=== PATIENT | male | born 1980 | race Caucasian/White ===

== ENCOUNTER 2017-02-08 14:06 | Emergency (ER) | payer MEDICARE, MEDICAID ==
[~2017-02-08] VITALS: Ht 165.1 cm; Wt 120.7 kg
[2017-02-08 15:07] LABS: BASO # 0.1 10*3/uL (0.0-0.1); BASO % 0.5 % (0.0-1.0); EOS # 0.4 10*3/uL (0.0-0.4); EOS % 4.7 % (1.0-4.0); HEMATOCRIT 41.7 % (42.0-52.0); HEMOGLOBIN 13.2 g/dl (14.0-18.0); LYMPH % 32.4 % (27.0-41.0); MEAN CELL VOLUME 85.1 fl (80.0-94.0); MEAN CORPUSCULAR HGB 26.9 pg (27.0-31.0); MEAN CORPUSCULAR HGB CONC 31.7 g/dl (33.0-37.0); MEAN PLATELET VOLUME 11.3 fl (9.6-12.3); MONO # 0.5 10*3/uL (0.1-1.0); MONO % 5.3 % (3.0-9.0); NEUT # 5.3 10*3/uL (2.3-7.9); NEUT % 56.7 % (47.0-73.0); PLATELET COUNT AUTOMATED 279 10*3/uL (130-400); RED CELL DISTRI WIDTH 15.1 % (0-14.5); WHITE BLOOD COUNT 9.4 10*3/uL (4.8-10.8)
[2017-02-08 15:24] LABS: ALBUMIN 3.4 gm/dl (3.1-4.5); BUN 10 mg/dl (7-24); CHLORIDE 107 mmol/L (98-107); CREATININE 0.69 mg/dL (0.70-1.30); LIPASE 165 U/L (73-393); POTASSIUM 3.8 mmol/L (3.5-5.1); SGOT/AST 33 IU/L (3-35); SGPT/ALT 53 U/L (12-78); SODIUM 142 mmol/L (136-145); TOTAL PROTEIN 8.5 gm/dL (6.4-8.2)
[2017-02-08 15:26] LABS: BILIRUBIN NEGATIVE (NEGATIVE); BLOOD NEGATIVE (NEGATIVE); CLARITY CLEAR (CLEAR); COLOR YELLOW (YELLOW); GLUCOSE NEGATIVE (NEGATIVE); KETONE NEGATIVE (NEGATIVE); LEUKO ESTERASE NEGATIVE (NEGATIVE); NITRITE NEGATIVE (NEGATIVE); SPECIFIC GRAVITY 1.015 (1.005-1.030); UROBILINOGEN 0.2 E.U./dl (0.2-1.0)
[2017-02-08 15:27] LABS: ALKALINE PHOSPHATASE 139 U/L (45-117)
[2017-02-08 15:29] LABS: TROPONIN I < 0.015 ng/ml (<0.045)
[2017-02-08 15:48] LABS: BACTERIA TRACE
[2017-02-08 15:49] LABS: WBC 0-2 wbc/hpf (0-5)
[2017-02-08] MEDS ORDERED: LIDEX 0.05% CRE15 GM T (16:18)
== END 2017-02-08 16:22 | disposition home or self-care (01) ==
LOC: ED 14:06
PROVIDERS: Physician Assistant
DX: R21 Rash and other nonspecific skin eruption (principal); F43.9 Reaction to severe stress, unspecified

== ENCOUNTER 2017-09-01 14:19 | Inpatient (IN) | payer OTHER, MEDICAID ==
[~2017-09-01] VITALS: Ht 165.1 cm; Wt 123.6 kg
--- NOTE | ~2017-09-01 | PR ---
[place], [place] PROGRESS NOTE NAME: FELIZ MORALES [facility] #: [id number] UNIT #: [id number] ROOM: 519 DOCTOR: ALEJANDRA SANTACRUZ MD BIRTHDATE: [birth year] DOS: 09/03/2017 The patient was seen today in the Cardiology Department just prior to his stress test. He is a 37-year-old man with a history of Klinefelter syndrome, who presented with anterior chest pain and syncope. Thus far, he has ruled out for an acute myocardial infarction. On exam today, his pulse is 83 and regular, blood pressure 139/75. He is afebrile. His neck is Supple. He has no jugular distention. Chest is clear. Heart has a regular rhythm with an S4 gallop. Abdomen is benign. Extremities showed no edema. The patient did have an echocardiogram on 09/02/2017 that showed normal left ventricular size, wall thickness, regional wall motion and systolic function. No significant abnormality of valve function was seen. Hemoglobin is 11.4, hematocrit 38.4. There are 8600 white cells and 249,000 platelets present. Sodium 142, potassium 3.9, chloride 109, CO2 25, BUN 10, creatinine 0.6. IMPRESSION: 1. Atypical chest pain, most likely musculoskeletal in origin. 2. Syncopal episode, which may be vasovagal. 3. Clinical findings consistent with metabolic syndrome. PLAN: We will do an exercise myocardial perfusion study today. Further recommendations will depend upon the results of his stress test. ALEJANDRA SANTACRUZ MD CM:PNTRANS [id number] ALEJANDRA SANTACRUZ MD 09/04/17 0631 interface
--- NOTE | ~2017-09-01 | CON ---
[place], [place] REPORT OF CONSULTATION [id number] UN[facility] #: [id number] ROOM: 519 DOCTOR: ALEJANDRA SANTACRUZ MD BIRTHDATE: [birth year] DOS: 09/02/2017 CARDIOLOGY CONSULTATION REASON FOR CONSULTATION: Chest pain and syncope. HISTORY OF PRESENT ILLNESS: The patient is a 37-year-old man with a history of obesity and Klinefelter's syndrome. He is on social security disability and has a history of compulsive gambling. He states that about 6 months ago while walking at the [facility], a rehab facility, he developed lightheadedness and near syncope. He had a brief chest pain at that time as well. Symptoms resolved and he was not evaluated further. Yesterday while walking again at the [facility], he felt like he was getting overheated and weak. He also developed a left anterior chest pain. He sat down and then lost consciousness, falling to the pavement. He apparently did not injure himself. He was brought to the Emergency Room where his electrocardiogram showed sinus tachycardia with a leftward axis and poor precordial R-wave progression. He had nonspecific T-wave flattening. Serial troponin levels were all normal. In the hospital, his rhythm has been sinus or mild sinus tachycardia. A CT of the head showed no fracture or acute abnormalities. A CT angiogram of the chest showed no pneumothorax, pleural effusion or evidence for pulmonary embolism. Chest x-ray showed clear lungs. We were asked to assist in his evaluation as well. Currently, the patient states that he is having 9/10 left anterior chest pain, but he looks very comfortable and is not diaphoretic or dyspneic. His EKG shows no acute changes this morning. PAST HISTORY: Includes: 1. Seizure disorder as a child. 2. Klinefelter's syndrome. 3. Status post cholecystectomy. 4. Remote history of cigarette abuse. The patient has not smoked in over 10 years. MEDICATIONS: Prior to admission included a multivitamin once a day and paliperidone 3 mg at bedtime. ALLERGIES: The patient has no known drug allergies. FAMILY HISTORY: His paternal grandfather had a heart attack in his 70s. His sister has diabetes. REVIEW OF SYSTEMS: The patient denies diplopia or loss of vision. He did have a syncopal episode prior to his admission. He denies fevers, chills or sweats. He did have sweating and palpitations at the time of the syncopal episode; however, he denies any recent weight change. He denies nausea or vomiting. He denies orthopnea or PND. He denies cough, hemoptysis or hematemesis. He denies change in bowel or bladder habits. He denies blood in his stools or urine. He denies any peripheral edema. He denies skin rashes. He denies heat or cold intolerance. The remainder of the review of systems is negative except as noted [place], [place] REPORT OF CONSULTATION NAME: FELIZ MORALES UNIT #: [id number] ROOM: [facility] DOCTOR: ALEJANDRA SANTACRUZ MD BIRTHDATE: [birth year] above. SOCIAL HISTORY: The patient rarely drinks alcohol. He was a smoker in the past. He is single. PHYSICAL EXAMINATION: GENERAL: The patient is an overweight white male with truncal obesity. He is awake, alert and oriented. VITAL SIGNS: Pulse is 76 and regular, blood pressure is 115/60, he is afebrile. He weighs 123.6 kg and has a body mass index of 45.4. HEENT: Normocephalic, atraumatic. Extraocular muscles are intact. Sclerae are clear. Pupils equal, round and react to light. The oral mucosa is moist. Tongue is midline. NECK: Supple. He has no jugular distention. Carotids are full without bruits. He has no neck or supraclavicular masses. LUNGS: Respirations are unlabored. His chest is clear to auscultation and percussion, although he does have mild expiratory prolongation and a few scattered wheezes. He has no presacral edema or chest wall tenderness. CARDIOVASCULAR: His heart has a regular rhythm. He has a fourth heart sound, but no third heart sound or murmur. The PMI is not displaced. There is no precordial heave, lift or thrill. Palpation of his left anterior upper chest does reproduce his symptoms of chest pain. ABDOMEN: Obese, but otherwise benign, without masses, organomegaly, bruits or tenderness. EXTREMITIES: Showed no edema. Pedal pulses are palpable bilaterally. DIAGNOSTIC DATA: I reviewed his electrocardiograms and they do show sinus rhythm and sinus tachycardia with poor precordial R-wave progression, but no acute changes. LABORATORY DATA: Serial troponins were normal. Drug screen was normal. Sodium is 142, potassium 3.9, chloride 109, CO2 of 25, BUN 10, creatinine 0.6, glucose 135. Hemoglobin A1c 6.9, total cholesterol 126, LDL 79, HDL 22, triglycerides 125. IMPRESSION: 1. Atypical chest pain, most likely musculoskeletal in origin. 2. Syncopal episode, which may be vasovagal. 3. Truncal obesity with clinical findings consistent with the metabolic syndrome. PLAN: We will continue to observe the patient today for arrhythmias to explain his syncopal episode. We will also be getting an echocardiogram to look for evidence of structural heart disease. If nothing shows up there, we will plan on an exercise myocardial perfusion study within the next 24 hours. In the meantime, he should be on an aspirin and a statin because of his risk factors and his metabolic syndrome. Certainly, he should remain active and lose weight. We thank the hospitalist physicians for asking our advice regarding his care. [place], [place] REPORT OF CONSULTATION NAME: FELIZ MORALES UNIT #: [id number] ROOM: 519 DOCTOR: ALEJANDRA SANTACRUZ MD BIRTHDATE: [birth year] ALEJANDRA SANTACRUZ MD CM:CONSTR:REPORT OF CONSULTATION [id number] 09/02/17 2019 interface
[~2017-09-01 14:19] MED LIST: LIDEX 0.05% CRE15 GM T
[2017-09-01 14:23] VITALS: BP 139/82
[2017-09-01] MEDS ORDERED: DAILY VITE1 EACH PO (14:26)
[2017-09-01] MEDS ORDERED: PALIPERIDONE ER3 MG PO (14:26)
[2017-09-01 14:42] LABS: BASO # 0.1 10*3/uL (0.0-0.1); BASO % 0.5 % (0.0-1.0); EOS # 0.6 10*3/uL (0.0-0.4); EOS % 5.7 % (1.0-4.0); HEMATOCRIT 41.8 % (42.0-52.0); HEMOGLOBIN 12.9 g/dl (14.0-18.0); LYMPH # 3.7 10*3/uL (1.3-4.4); LYMPH % 33.1 % (27.0-41.0); MEAN CELL VOLUME 85.7 fl (80.0-94.0); MEAN CORPUSCULAR HGB 26.4 pg (27.0-31.0); MEAN CORPUSCULAR HGB CONC 30.9 g/dl (33.0-37.0); MEAN PLATELET VOLUME 11.4 fl (9.6-12.3); MONO # 0.7 10*3/uL (0.1-1.0); MONO % 6.5 % (3.0-9.0); NEUT # 6.1 10*3/uL (2.3-7.9); NEUT % 53.8 % (47.0-73.0); PLATELET COUNT AUTOMATED 286 10*3/uL (130-400); RED BLOOD COUNT 4.88 10*6/uL (4.50-5.90); WHITE BLOOD COUNT 11.3 10*3/uL (4.8-10.8)
[2017-09-01 14:59] LABS: ALBUMIN 3.5 gm/dl (3.1-4.5); ALKALINE PHOSPHATASE 137 U/L (45-117); BUN 10 mg/dl (7-24); CHLORIDE 110 mmol/L (98-107); CREATININE 0.75 mg/dL (0.70-1.30); POTASSIUM 3.9 mmol/L (3.5-5.1); SGOT/AST 31 IU/L (3-35); SGPT/ALT 47 U/L (12-78); SODIUM 143 mmol/L (136-145); TOTAL PROTEIN 8.6 gm/dL (6.4-8.2)
[2017-09-01 15:04] LABS: TROPONIN I < 0.015 ng/ml (<0.045)
[2017-09-01 15:44] LABS: ACT PARTIAL THROMBO TIME 24.9 SECONDS (20.8-31.5); INTERNATIONAL NORM RATIO 0.9 (2.0-3.5)
[2017-09-01 15:49] LABS: BILIRUBIN NEGATIVE (NEGATIVE); BLOOD NEGATIVE (NEGATIVE); CLARITY CLEAR (CLEAR); COLOR YELLOW (YELLOW); GLUCOSE NEGATIVE (NEGATIVE); KETONE NEGATIVE (NEGATIVE); LEUKO ESTERASE NEGATIVE (NEGATIVE); NITRITE NEGATIVE (NEGATIVE); SPECIFIC GRAVITY 1.025 (1.005-1.030); UROBILINOGEN 0.2 E.U./dl (0.2-1.0)
[2017-09-01 15:56] LABS: BACTERIA TRACE; RBC 0-2 rbc/hpf (0-2); WBC 0-2 wbc/hpf (0-5)
[2017-09-01 16:00] LABS: URINE AMPHETAMINES < 1000 (1000ng/ml); URINE BARBITURATES < 200 (200ng/ml); URINE BENZODIAZEPINES < 200 (200ng/ml); URINE CANNABINOIDS (THC) < 50 (50ng/ml); URINE COCAINE < 300 (300ng/ml); URINE METHADONE < 300 (300ng/ml); URINE OPIATES < 300 (300ng/ml)
[2017-09-01 16:09] LABS: URINE PHENCYCLIDINE < 25 (25ng/ml)
[2017-09-01 16:25] VITALS: BP 126/66
[2017-09-01 17:44] VITALS: BP 139/76
[2017-09-01 19:30] VITALS: BP 132/72
[2017-09-01 20:00] VITALS: BP 125/71
[2017-09-02] VITALS: BP 128/68
[2017-09-02 07:15] LABS: BASO # 0.1 10*3/uL (0.0-0.1); BASO % 0.7 % (0.0-1.0); EOS # 0.6 10*3/uL (0.0-0.4); EOS % 6.8 % (1.0-4.0); HEMATOCRIT 38.4 % (42.0-52.0); HEMOGLOBIN 11.4 g/dl (14.0-18.0); LYMPH # 3.3 10*3/uL (1.3-4.4); LYMPH % 38.9 % (27.0-41.0); MEAN CELL VOLUME 88.1 fl (80.0-94.0); MEAN CORPUSCULAR HGB 26.1 pg (27.0-31.0); MEAN CORPUSCULAR HGB CONC 29.7 g/dl (33.0-37.0); MEAN PLATELET VOLUME 11.8 fl (9.6-12.3); MONO # 0.5 10*3/uL (0.1-1.0); MONO % 5.8 % (3.0-9.0); NEUT # 4.1 10*3/uL (2.3-7.9); NEUT % 47.5 % (47.0-73.0); PLATELET COUNT AUTOMATED 249 10*3/uL (130-400); RED BLOOD COUNT 4.36 10*6/uL (4.50-5.90); WHITE BLOOD COUNT 8.6 10*3/uL (4.8-10.8)
[2017-09-02 07:30] LABS: BUN 10 mg/dl (7-24); CHLORIDE 109 mmol/L (98-107); CHOLESTEROL 126 mg/dL (<200); PHOSPHOROUS 3.2 mg/dL (2.5-4.9); POTASSIUM 3.9 mmol/L (3.5-5.1); SODIUM 142 mmol/L (136-145); TRIGLYCERIDES 125 mg/dl (<150); VLDL CHOLESTEROL 25 mg/dL (6-40)
[2017-09-02 07:40] LABS: FREE T4 0.91 ng/dl (0.76-1.46); HDL CHOLESTEROL 22 mg/dl (40-60); LDL CHOLESTEROL 79 mg/dL (9-159)
[2017-09-02 08:00] VITALS: BP 115/60
[2017-09-02 10:01] LABS: VITAMIN D, 25-HYDROXY 15.8 ng/mL (30-100)
[2017-09-02 12:00] VITALS: BP 113/61
[2017-09-02 16:00] VITALS: BP 113/61
[2017-09-02 20:00] VITALS: BP 120/85
[2017-09-03] VITALS: BP 127/82
[2017-09-03 08:00] VITALS: BP 139/75
[2017-09-03] MEDS ORDERED: VITAMIN D-32000 UNIT PO (15:14)
[2017-09-03] MEDS ORDERED: ATORVASTATIN CA80 M1 PO (15:14)
[2017-09-03] MEDS ORDERED: ASPIRIN ADULT L81 M2 PO (15:14)
[2017-09-03 16:00] VITALS: BP 139/84
== END 2017-09-03 18:25 | disposition home or self-care (01) | DRG 312 ==
LOC: ED 14:19 → EDHOLD 18:28 → 5E 18:28 → EDHOLD 18:49 → 5E 19:14
PROVIDERS: Physician Assistant; Student in an Organized Health Care Education/Training Program
PROC: 4A02XM4 Measurement of Cardiac Total Activity, External Approach (ICD-10-PCS; principal; 2017-09-03)
DX: I95.1 Orthostatic hypotension (principal); E87.8 Other disorders of electrolyte and fluid balance, not elsewhere classified; E66.01 Morbid (severe) obesity due to excess calories; Z68.42 Body mass index [BMI] 45.0-49.9, adult; R07.9 Chest pain, unspecified; Q98.4 Klinefelter syndrome, unspecified; D64.9 Anemia, unspecified; R03.0 Elevated blood-pressure reading, without diagnosis of hypertension; R00.0 Tachycardia, unspecified; R73.9 Hyperglycemia, unspecified; R74.8 Abnormal levels of other serum enzymes; E86.0 Dehydration; G40.909 Epilepsy, unspecified, not intractable, without status epilepticus; W18.39XA Other fall on same level, initial encounter; Z87.891 Personal history of nicotine dependence; Z79.899 Other long term (current) drug therapy; Z87.898 Personal history of other specified conditions; Z90.49 Acquired absence of other specified parts of digestive tract; Z82.49 Family history of ischemic heart disease and other diseases of the circulatory system; Z83.3 Family history of diabetes mellitus; Y93.89 Activity, other specified; Y92.89 Other specified places as the place of occurrence of the external cause; Y99.8 Other external cause status

== ENCOUNTER 2019-01-11 15:40 | Inpatient (IN) | payer OTHER, MEDICAID ==
[~2019-01-11] VITALS: Ht 177.8 cm; Wt 124.7 kg
--- NOTE | ~2019-01-11 | EKG ---
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
--- NOTE | ~2019-01-11 | EKG ---
[place], [place] ELECTROCARDIOGRAM REPORT NAME: FELIZ MORALES UNIT #: [id number] ROOM: 412 DOCTOR: JEAN DRAFT REPORT BIRTHDATE: [birth year] 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
--- NOTE | ~2019-01-11 | EKG ---
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
[2019-01-11 15:40] VITALS: BP 131/70
[~2019-01-11 15:40] MED LIST changes: +ASPIRIN ADULT L81 M2 PO; +ATORVASTATIN CA80 M1 PO; +DAILY VITE1 EACH PO; +PALIPERIDONE ER3 MG PO; +VITAMIN D-32000 UNIT PO
[2019-01-11 16:03] LABS: BASO # 0.1 10*3/uL (0.0-0.1); BASO % 0.6 % (0.0-1.0); EOS # 0.3 10*3/uL (0.0-0.4); EOS % 2.9 % (1.0-4.0); HEMATOCRIT 39.2 % (42.0-52.0); HEMOGLOBIN 12.1 g/dl (14.0-18.0); LYMPH # 3.6 10*3/uL (1.3-4.4); LYMPH % 33.7 % (27.0-41.0); MEAN CELL VOLUME 88.5 fl (80.0-94.0); MEAN CORPUSCULAR HGB 27.3 pg (27.0-31.0); MEAN CORPUSCULAR HGB CONC 30.9 g/dl (33.0-37.0); MEAN PLATELET VOLUME 11.2 fl (9.6-12.3); MONO # 0.8 10*3/uL (0.1-1.0); MONO % 7.1 % (3.0-9.0); NEUT # 5.9 10*3/uL (2.3-7.9); NEUT % 55.4 % (47.0-73.0); PLATELET COUNT AUTOMATED 275 10*3/uL (130-400); RED BLOOD COUNT 4.43 10*6/uL (4.50-5.90); RED CELL DISTRI WIDTH 15.9 % (0-14.5); WHITE BLOOD COUNT 10.7 10*3/uL (4.8-10.8)
[2019-01-11 16:14] LABS: ACT PARTIAL THROMBO TIME 25.4 SECONDS (20.0-32.1); INTERNATIONAL NORM RATIO 0.9 (2.0-3.5)
[2019-01-11 16:34] LABS: ALBUMIN 3.1 gm/dl (3.1-4.5); ALKALINE PHOSPHATASE 125 U/L (45-117); BUN 10 mg/dl (7-24); CHLORIDE 110 mmol/L (98-107); CREATININE 0.77 mg/dL (0.70-1.30); POTASSIUM 3.8 mmol/L (3.5-5.1); SGOT/AST 30 IU/L (3-35); SGPT/ALT 38 U/L (12-78); SODIUM 143 mmol/L (136-145); TOTAL PROTEIN 8.2 gm/dL (6.4-8.2)
[2019-01-11 16:49] LABS: TROPONIN I < 0.015 ng/ml (<0.045)
[2019-01-11 17:00] VITALS: BP 139/87
[2019-01-11 18:26] VITALS: BP 141/76
--- NOTE | 2019-01-11 19:19 | NUR ---
REPORT RECEIVED FROM YOANNA BETHEA RN. PATIENT IS RESTING COMFORTABLY IN BED WITHOUT ANY S/S OF DISTRESS. VITALS ARE STABLE. AWAITING ADMISSION BED.
[2019-01-11 19:20] VITALS: BP 136/74
[2019-01-11 20:00] VITALS: BP 147/60
[2019-01-11] MEDS ORDERED: ZOLOFT50 MG PO (20:07)
[2019-01-11] MEDS ORDERED: DEPAKOTE ER250 MG PO (20:08)
--- NOTE | 2019-01-11 20:28 | NUR ---
HOME MEDICATIONS VARIFIED WITH PATIENT, PT HAD MEDICATION LABELS WITH HIM
--- NOTE | 2019-01-11 20:35 | NUR ---
ORTHOSTATIC BLOOD PRESSURES COMPLETE, ORTHO BP NEGATIVE HOWEVER PATIENT STATES THAT HE FEELS "MORE DIZZY" AND "MORE CHEST PAIN" WHEN STANDING. PT HAD DIFFICULT TIME STANDING FOR ORTHOS DUE TO FEELING DIZZY. DR. DAVIS WAS NOTIFIED
[2019-01-12] VITALS: BP 121/66
--- NOTE | 2019-01-12 04:00 | NUR ---
PATIENT SLEEPING, NO SIGNS OF DISTRESS. RESPIRATIONS EASY, NON LABORED. BED IN LOWEST POSITION, CALL LIGHT WITHIN REACH.WILL CONTINUE TO MONITOR.
[2019-01-12 05:37] LABS: BASO % 0.5 % (0.0-1.0); EOS # 0.4 10*3/uL (0.0-0.4); EOS % 4.7 % (1.0-4.0); HEMATOCRIT 39.7 % (42.0-52.0); HEMOGLOBIN 11.9 g/dl (14.0-18.0); LYMPH # 4.1 10*3/uL (1.3-4.4); LYMPH % 48.2 % (27.0-41.0); MEAN CELL VOLUME 89.6 fl (80.0-94.0); MEAN CORPUSCULAR HGB 26.9 pg (27.0-31.0); MONO # 0.5 10*3/uL (0.1-1.0); MONO % 6.4 % (3.0-9.0); NEUT # 3.4 10*3/uL (2.3-7.9); NEUT % 39.7 % (47.0-73.0); PLATELET COUNT AUTOMATED 247 10*3/uL (130-400); RED BLOOD COUNT 4.43 10*6/uL (4.50-5.90); RED CELL DISTRI WIDTH 15.9 % (0-14.5); WHITE BLOOD COUNT 8.5 10*3/uL (4.8-10.8)
[2019-01-12 06:06] LABS: BUN 9 mg/dl (7-24); CHLORIDE 108 mmol/L (98-107); CHOLESTEROL 152 mg/dL (<200); CREATININE 0.63 mg/dL (0.70-1.30); HDL CHOLESTEROL 24 mg/dl (40-60); LDL CHOLESTEROL 93 mg/dL (9-159); POTASSIUM 3.9 mmol/L (3.5-5.1); SODIUM 144 mmol/L (136-145); TRIGLYCERIDES 174 mg/dl (<150); VLDL CHOLESTEROL 35 mg/dL (6-40)
[2019-01-12 08:00] VITALS: BP 135/77
--- NOTE | 2019-01-12 09:00 | NUR ---
[place] in to talk to patient. Patient states lives at home with parents. There are few steps in the home. Physician: michael escaalnte [facility]acy[facility] Home health services: none Patient's level of ADLs: INDEPENDENT Patient has working utilities: all working DME: none Follow-up physician's appointment after d/c: will be made by hospitalist nurse aldo upon discharge Does patient want to access PORTAL?: no Discharge plan discussed with patient, he states he lives at home with his parents, he is independent in adls and ambulation, drives, he states he will return home when medically stable and denies any home needs. CHASE BAH
[2019-01-12 12:00] VITALS: BP 134/67
--- NOTE | 2019-01-12 15:31 | NUR ---
PT REQUESTED AND WAS MEDICATED WITH TYLENOL FOR C/O HEADACHE. CALL LIGHT IN REACH. WILL MONITOR
[2019-01-12 16:00] VITALS: BP 130/70
--- NOTE | 2019-01-12 18:18 | NUR ---
Discharge instructions reviewed with patient/family. Patient receptive and verbalizes understanding. Follow-up care arranged. Written instructions given to patient/family. EVERARDO MERCEDES
== END 2019-01-12 18:18 | disposition home or self-care (01) | DRG 312 ==
LOC: ED 15:40 → 4E 18:36 → EDHOLD 18:36 → 4E 19:35
PROVIDERS: Emergency Medicine; Student in an Organized Health Care Education/Training Program; ADMIT Internal Medicine
DX: I95.1 Orthostatic hypotension (principal); E44.0 Moderate protein-calorie malnutrition; E87.8 Other disorders of electrolyte and fluid balance, not elsewhere classified; R07.89 Other chest pain; D64.9 Anemia, unspecified; E78.5 Hyperlipidemia, unspecified; E11.65 Type 2 diabetes mellitus with hyperglycemia; E55.9 Vitamin D deficiency, unspecified; F41.9 Anxiety disorder, unspecified; G40.909 Epilepsy, unspecified, not intractable, without status epilepticus; F32.9 Major depressive disorder, single episode, unspecified; R74.8 Abnormal levels of other serum enzymes; E66.9 Obesity, unspecified; S00.93XA Contusion of unspecified part of head, initial encounter; S20.219A Contusion of unspecified front wall of thorax, initial encounter; W18.30XA Fall on same level, unspecified, initial encounter; Y93.89 Activity, other specified; Y92.811 Bus as the place of occurrence of the external cause; Y99.8 Other external cause status; Q98.4 Klinefelter syndrome, unspecified; Z90.49 Acquired absence of other specified parts of digestive tract; Z87.891 Personal history of nicotine dependence; Z84.89 Family history of other specified conditions; Z79.899 Other long term (current) drug therapy

== ENCOUNTER 2022-08-14 21:53 | Emergency (ER) | payer MEDICAID ==
[~2022-08-14] VITALS: Ht 170.1 cm; Wt 122.5 kg
[~2022-08-14 21:53] MED LIST changes: +DEPAKOTE ER250 MG PO; +ZOLOFT50 MG PO
[2022-08-14] MEDS ORDERED: KETOROLAC10 MG PO (22:47)
== END 2022-08-14 22:52 | disposition home or self-care (01) ==
LOC: ED 21:53
DX: M25.551 Pain in right hip (principal); Z79.899 Other long term (current) drug therapy; Z90.49 Acquired absence of other specified parts of digestive tract; Z87.891 Personal history of nicotine dependence; W18.39XA Other fall on same level, initial encounter; Y93.89 Activity, other specified; Y92.098 Other place in other non-institutional residence as the place of occurrence of the external cause; Y99.8 Other external cause status

== ENCOUNTER 2022-09-02 12:34 | Emergency (ER) | payer OTHER, MEDICAID ==
[~2022-09-02] VITALS: Wt 123.4 kg
[~2022-09-02 12:34] MED LIST changes: +KETOROLAC10 MG PO
[2022-09-02] MEDS ORDERED: ARIPIPRAZOLE10 MG PO (12:54)
[2022-09-02] MEDS ORDERED: ETODOLAC ER400 MG PO (12:55)
[2022-09-02 13:31] LABS: BASO % 0.4 % (0.0-1.0); EOS # 0.6 10*3/uL (0.0-0.4); EOS % 6.7 % (1.0-4.0); HEMATOCRIT 45.8 % (42.0-52.0); LYMPH % 35.5 % (27.0-41.0); MEAN CELL VOLUME 86.6 fl (80.0-94.0); MEAN CORPUSCULAR HGB 26.8 pg (27.0-31.0); MEAN PLATELET VOLUME 10.9 fl (9.6-12.3); MONO # 0.4 10*3/uL (0.1-1.0); NEUT # 4.4 10*3/uL (2.3-7.9); NEUT % 52.2 % (47.0-73.0); PLATELET COUNT AUTOMATED 283 10*3/uL (130-400); RED BLOOD COUNT 5.29 10*6/uL (4.50-5.90); RED CELL DISTRI WIDTH 15.2 % (0-14.5); WHITE BLOOD COUNT 8.4 10*3/uL (4.8-10.8)
[2022-09-02 13:41] LABS: ACT PARTIAL THROMBO TIME 28.9 SECONDS (20.0-32.1)
[2022-09-02 13:53] LABS: ALKALINE PHOSPHATASE 133 U/L (46-116); BUN 10 mg/dl (9-23); CHLORIDE 107 mmol/L (98-107); LIPASE 35 U/L (12-53); POTASSIUM 3.7 mmol/L (3.4-5.1); SGPT/ALT 29 U/L (10-49); TOTAL PROTEIN 8.2 gm/dL (6.0-8.0)
[2022-09-02 15:40] LABS: BILIRUBIN Negative (Negative); BLOOD Negative (Negative); CLARITY Clear (Clear); COLOR Yellow (Yellow); GLUCOSE Negative (Negative); KETONE Negative (Negative); LEUKO ESTERASE Negative (Negative); NITRITE Negative (Negative); PH 5.5 (4.5-8.0)
[2022-09-02 15:58] LABS: BACTERIA TRACE; EPITHELIAL CELLS 0-2; WBC 0-2 wbc/hpf (0-5)
== END 2022-09-02 17:27 | disposition home or self-care (01) ==
LOC: ED 12:34
PROVIDERS: Emergency Medicine
DX: R33.9 Retention of urine, unspecified (principal); F41.9 Anxiety disorder, unspecified; Z90.49 Acquired absence of other specified parts of digestive tract; Z98.890 Other specified postprocedural states; Z87.891 Personal history of nicotine dependence

== ENCOUNTER 2022-09-16 22:27 | Emergency (ER) | payer OTHER, MEDICAID ==
[~2022-09-16] VITALS: Ht 170.1 cm; Wt 122.5 kg
[~2022-09-16 22:27] MED LIST changes: +ARIPIPRAZOLE10 MG PO; +ETODOLAC ER400 MG PO
== END 2022-09-17 02:03 | disposition home or self-care (01) ==
LOC: ED 22:27
DX: S93.401A Sprain of unspecified ligament of right ankle, initial encounter (principal); F41.9 Anxiety disorder, unspecified; Z90.49 Acquired absence of other specified parts of digestive tract; Z98.890 Other specified postprocedural states; Z87.891 Personal history of nicotine dependence; X50.1XXA Overexertion from prolonged static or awkward postures, initial encounter; Y93.01 Activity, walking, marching and hiking; Y92.89 Other specified places as the place of occurrence of the external cause; Y99.8 Other external cause status

== ENCOUNTER 2022-10-08 20:50 | Emergency (ER) | payer OTHER, MEDICAID ==
[~2022-10-08] VITALS: Ht 172.7 cm; Wt 122.5 kg
[2022-10-08 22:02] LABS: BASO % 0.4 % (0.0-1.0); EOS # 0.6 10*3/uL (0.0-0.4); EOS % 6.9 % (1.0-4.0); HEMATOCRIT 41.8 % (42.0-52.0); LYMPH # 3.4 10*3/uL (1.3-4.4); LYMPH % 41.1 % (27.0-41.0); MEAN CELL VOLUME 88.9 fl (80.0-94.0); MEAN CORPUSCULAR HGB CONC 30.4 g/dl (33.0-37.0); MEAN PLATELET VOLUME 10.8 fl (9.6-12.3); MONO # 0.6 10*3/uL (0.1-1.0); MONO % 6.6 % (3.0-9.0); NEUT # 3.7 10*3/uL (2.3-7.9); NEUT % 44.2 % (47.0-73.0); PLATELET COUNT AUTOMATED 217 10*3/uL (130-400); RED CELL DISTRI WIDTH 16.5 % (0-14.5); WHITE BLOOD COUNT 8.4 10*3/uL (4.8-10.8)
[2022-10-08 22:11] LABS: ACT PARTIAL THROMBO TIME 27.6 SECONDS (20.0-32.1)
[2022-10-08 22:24] LABS: ALKALINE PHOSPHATASE 128 U/L (46-116); BUN 8 mg/dl (9-23); CHLORIDE 107 mmol/L (98-107); LIPASE 36 U/L (12-53); POTASSIUM 3.6 mmol/L (3.4-5.1); SGPT/ALT 37 U/L (10-49); TOTAL PROTEIN 7.6 gm/dL (6.0-8.0)
== END 2022-10-09 00:39 | disposition home or self-care (01) ==
LOC: ED 20:50
PROVIDERS: Physician Assistant Medical
DX: S16.1XXA Strain of muscle, fascia and tendon at neck level, initial encounter (principal); R07.89 Other chest pain; F41.9 Anxiety disorder, unspecified; Z90.49 Acquired absence of other specified parts of digestive tract; Z98.890 Other specified postprocedural states; Z87.891 Personal history of nicotine dependence; X50.1XXA Overexertion from prolonged static or awkward postures, initial encounter; Y93.89 Activity, other specified; Y92.009 Unspecified place in unspecified non-institutional (private) residence as the place of occurrence of the external cause; Y99.8 Other external cause status

== ENCOUNTER 2022-10-16 16:34 | Emergency (ER) | payer OTHER, MEDICAID ==
[~2022-10-16] VITALS: Ht 172.7 cm; Wt 94.3 kg
[2022-10-16 16:50] LABS: BASO # 0.1 10*3/uL (0.0-0.1); BASO % 0.6 % (0.0-1.0); EOS # 0.4 10*3/uL (0.0-0.4); EOS % 4.7 % (1.0-4.0); HEMATOCRIT 40.2 % (42.0-52.0); LYMPH # 3.2 10*3/uL (1.3-4.4); LYMPH % 36.6 % (27.0-41.0); MEAN CELL VOLUME 87.2 fl (80.0-94.0); MEAN CORPUSCULAR HGB 27.3 pg (27.0-31.0); MEAN CORPUSCULAR HGB CONC 31.3 g/dl (33.0-37.0); MEAN PLATELET VOLUME 10.9 fl (9.6-12.3); MONO # 0.6 10*3/uL (0.1-1.0); MONO % 6.8 % (3.0-9.0); NEUT # 4.4 10*3/uL (2.3-7.9); NEUT % 51.2 % (47.0-73.0); PLATELET COUNT AUTOMATED 259 10*3/uL (130-400); RED BLOOD COUNT 4.61 10*6/uL (4.50-5.90); RED CELL DISTRI WIDTH 16.4 % (0-14.5); WHITE BLOOD COUNT 8.7 10*3/uL (4.8-10.8)
[2022-10-16 17:01] LABS: ACT PARTIAL THROMBO TIME 27.6 SECONDS (20.0-32.1)
[2022-10-16 17:11] LABS: ALKALINE PHOSPHATASE 140 U/L (46-116); BUN 8 mg/dl (9-23); CHLORIDE 108 mmol/L (98-107); LIPASE 28 U/L (12-53); POTASSIUM 3.7 mmol/L (3.4-5.1); SGPT/ALT 35 U/L (10-49); TOTAL PROTEIN 7.5 gm/dL (6.0-8.0)
== END 2022-10-16 19:24 | disposition home or self-care (01) ==
LOC: ED 16:34
PROVIDERS: Internal Medicine
DX: R51.9 Headache, unspecified (principal); E78.5 Hyperlipidemia, unspecified; Z79.899 Other long term (current) drug therapy; Z90.49 Acquired absence of other specified parts of digestive tract; Z87.891 Personal history of nicotine dependence; W22.8XXA Striking against or struck by other objects, initial encounter; Y93.89 Activity, other specified; Y92.89 Other specified places as the place of occurrence of the external cause; Y99.8 Other external cause status

== ENCOUNTER 2022-10-18 21:58 | Emergency (ER) | payer OTHER, MEDICAID ==
[~2022-10-18] VITALS: Ht 170.1 cm; Wt 95.3 kg
[2022-10-18 22:29] LABS: BASO # 0.1 10*3/uL (0.0-0.1); BASO % 0.5 % (0.0-1.0); EOS # 0.5 10*3/uL (0.0-0.4); EOS % 4.6 % (1.0-4.0); HEMATOCRIT 40.6 % (42.0-52.0); LYMPH # 3.9 10*3/uL (1.3-4.4); LYMPH % 40.5 % (27.0-41.0); MEAN CELL VOLUME 87.3 fl (80.0-94.0); MEAN CORPUSCULAR HGB 27.3 pg (27.0-31.0); MEAN CORPUSCULAR HGB CONC 31.3 g/dl (33.0-37.0); MONO # 0.5 10*3/uL (0.1-1.0); MONO % 4.8 % (3.0-9.0); NEUT # 4.8 10*3/uL (2.3-7.9); NEUT % 49.3 % (47.0-73.0); PLATELET COUNT AUTOMATED 262 10*3/uL (130-400); RED BLOOD COUNT 4.65 10*6/uL (4.50-5.90); RED CELL DISTRI WIDTH 16.3 % (0-14.5); WHITE BLOOD COUNT 9.7 10*3/uL (4.8-10.8)
[2022-10-18 22:53] LABS: ALKALINE PHOSPHATASE 145 U/L (46-116); BUN 9 mg/dl (9-23); CHLORIDE 108 mmol/L (98-107); LIPASE 28 U/L (12-53); POTASSIUM 3.4 mmol/L (3.4-5.1); SGPT/ALT 35 U/L (10-49); TOTAL PROTEIN 7.8 gm/dL (6.0-8.0)
[2022-10-18] MEDS ORDERED: FLOMAX0.4 MG PO (23:19)
[2022-10-18] MEDS ORDERED: ONDANSETRON4 MG SL (23:19)
[2022-10-18] MEDS ORDERED: HYDROCODONE-AC1 EAC1 PO (23:19)
== END 2022-10-19 01:01 | disposition home or self-care (01) ==
LOC: ED 21:58
PROVIDERS: Internal Medicine
DX: N13.2 Hydronephrosis with renal and ureteral calculous obstruction (principal); E66.9 Obesity, unspecified; Z79.899 Other long term (current) drug therapy; Z90.49 Acquired absence of other specified parts of digestive tract; Z87.891 Personal history of nicotine dependence; Z68.30 Body mass index [BMI] 30.0-30.9, adult

== ENCOUNTER 2022-11-02 18:33 | Emergency (ER) | payer OTHER, MEDICAID ==
[~2022-11-02] VITALS: Ht 172.7 cm; Wt 114.8 kg
[~2022-11-02 18:33] MED LIST changes: +FLOMAX0.4 MG PO; +HYDROCODONE-AC1 EAC1 PO; +ONDANSETRON4 MG SL
[2022-11-02 19:44] LABS: BASO % 0.4 % (0.0-1.0); EOS # 1.3 10*3/uL (0.0-0.4); EOS % 12.4 % (1.0-4.0); HEMATOCRIT 41.3 % (42.0-52.0); LYMPH # 3.7 10*3/uL (1.3-4.4); LYMPH % 35.2 % (27.0-41.0); MEAN CELL VOLUME 88.8 fl (80.0-94.0); MEAN CORPUSCULAR HGB CONC 31.5 g/dl (33.0-37.0); MEAN PLATELET VOLUME 11.3 fl (9.6-12.3); MONO # 0.5 10*3/uL (0.1-1.0); NEUT # 4.9 10*3/uL (2.3-7.9); NEUT % 46.6 % (47.0-73.0); PLATELET COUNT AUTOMATED 232 10*3/uL (130-400); RED BLOOD COUNT 4.65 10*6/uL (4.50-5.90); RED CELL DISTRI WIDTH 16.3 % (0-14.5); WHITE BLOOD COUNT 10.4 10*3/uL (4.8-10.8)
[2022-11-02 20:06] LABS: ALKALINE PHOSPHATASE 136 U/L (46-116); BUN 9 mg/dl (9-23); CHLORIDE 111 mmol/L (98-107); LIPASE 30 U/L (12-53); POTASSIUM 3.5 mmol/L (3.4-5.1); SGPT/ALT 26 U/L (10-49); TOTAL PROTEIN 7.9 gm/dL (6.0-8.0)
[2022-11-02 20:16] LABS: ACT PARTIAL THROMBO TIME 25.5 SECONDS (20.0-32.1)
== END 2022-11-02 23:21 | disposition home or self-care (01) ==
LOC: ED 18:33
PROVIDERS: Internal Medicine
DX: R07.1 Chest pain on breathing (principal); R06.02 Shortness of breath; E78.5 Hyperlipidemia, unspecified; Z79.899 Other long term (current) drug therapy; Z90.49 Acquired absence of other specified parts of digestive tract; Z87.891 Personal history of nicotine dependence

== ENCOUNTER 2022-12-02 22:55 | Emergency (ER) | payer OTHER, MEDICAID ==
[~2022-12-02] VITALS: Ht 172.7 cm; Wt 111.1 kg
== END 2022-12-02 23:36 | disposition home or self-care (01) ==
LOC: ED 22:55
DX: M16.11 Unilateral primary osteoarthritis, right hip (principal); M25.551 Pain in right hip; G89.29 Other chronic pain; F41.9 Anxiety disorder, unspecified; Z87.442 Personal history of urinary calculi; Z90.49 Acquired absence of other specified parts of digestive tract; Z98.890 Other specified postprocedural states; F17.210 Nicotine dependence, cigarettes, uncomplicated

== ENCOUNTER 2022-12-30 13:40 | Emergency (ER) | payer OTHER, MEDICAID ==
[~2022-12-30] VITALS: Ht 175.2 cm; Wt 108.9 kg
== END 2022-12-30 17:07 | disposition left against medical advice (07) ==
LOC: ED 13:40
DX: M25.512 Pain in left shoulder (principal); Z53.21 Procedure and treatment not carried out due to patient leaving prior to being seen by health care provider

== ENCOUNTER 2023-01-11 13:39 | Emergency (ER) | payer OTHER, MEDICAID ==
[~2023-01-11] VITALS: Ht 170.1 cm; Wt 111.6 kg
[2023-01-11 14:29] LABS: BASO % 0.3 % (0.0-1.0); EOS # 1.1 10*3/uL (0.0-0.4); EOS % 11.2 % (1.0-4.0); LYMPH # 3.5 10*3/uL (1.3-4.4); LYMPH % 37.2 % (27.0-41.0); MEAN CELL VOLUME 89.1 fl (80.0-94.0); MEAN CORPUSCULAR HGB CONC 31.5 g/dl (33.0-37.0); MEAN PLATELET VOLUME 10.4 fl (9.6-12.3); MONO # 0.6 10*3/uL (0.1-1.0); MONO % 6.3 % (3.0-9.0); NEUT # 4.2 10*3/uL (2.3-7.9); NEUT % 44.8 % (47.0-73.0); PLATELET COUNT AUTOMATED 286 10*3/uL (130-400); RED CELL DISTRI WIDTH 14.5 % (0-14.5); WHITE BLOOD COUNT 9.4 10*3/uL (4.8-10.8)
[2023-01-11 14:54] LABS: ALKALINE PHOSPHATASE 138 U/L (46-116); BUN 8 mg/dl (9-23); CHLORIDE 107 mmol/L (98-107); POTASSIUM 3.7 mmol/L (3.4-5.1); SGPT/ALT 27 U/L (5-49); TOTAL PROTEIN 7.6 gm/dL (6.0-8.0)
== END 2023-01-11 17:38 | disposition home or self-care (01) ==
LOC: ED 13:39
PROVIDERS: Family Medicine
DX: R07.89 Other chest pain (principal); R09.1 Pleurisy; F41.9 Anxiety disorder, unspecified; Z87.442 Personal history of urinary calculi; J06.9 Acute upper respiratory infection, unspecified; Z90.49 Acquired absence of other specified parts of digestive tract; Z98.890 Other specified postprocedural states; Z87.891 Personal history of nicotine dependence; Z20.822 Contact with and (suspected) exposure to COVID-19

== ENCOUNTER 2023-10-13 20:32 | Emergency (ER) | payer OTHER, MEDICAID ==
[~2023-10-13] VITALS: Ht 193 cm; Wt 108.9 kg
[2023-10-13] MEDS ORDERED: SODIUM CHLORIDE 0.9% 1,000 ML IV ONE (20:50)
[2023-10-13] MEDS ORDERED: Ketorolac Tromethamine 30 MG/ML VIAL IV ONE (20:55)
[2023-10-13 21:06] LABS: BASO % 0.3 % (0.0-1.0); EOS % 0.1 % (1.0-4.0); HEMATOCRIT 39.5 % (42.0-52.0); LYMPH # 3.1 10*3/uL (1.3-4.4); LYMPH % 35.5 % (27.0-41.0); MEAN CORPUSCULAR HGB 27.3 pg (27.0-31.0); MEAN CORPUSCULAR HGB CONC 30.6 g/dl (33.0-37.0); MEAN PLATELET VOLUME 10.3 fl (9.6-12.3); MONO # 0.6 10*3/uL (0.1-1.0); NEUT % 56.6 % (47.0-73.0); PLATELET COUNT AUTOMATED 235 10*3/uL (130-400); RED BLOOD COUNT 4.44 10*6/uL (4.50-5.90); WHITE BLOOD COUNT 8.8 10*3/uL (4.8-10.8)
[2023-10-13 21:20] LABS: BILIRUBIN Negative (Negative); BLOOD Negative (Negative); CLARITY Clear (Clear); COLOR Yellow (Yellow); GLUCOSE Negative (Negative); KETONE Negative (Negative); LEUKO ESTERASE 1+ (Negative); NITRITE Negative (Negative); PH 6.5 (4.5-8.0)
[2023-10-13 21:27] LABS: ALKALINE PHOSPHATASE 144 U/L (46-116); BUN 11 mg/dl (9-23); CHLORIDE 109 mmol/L (98-107); LIPASE 40 U/L (12-53); POTASSIUM 3.8 mmol/L (3.4-5.1); SGPT/ALT 36 U/L (5-49); TOTAL PROTEIN 7.7 gm/dL (6.0-8.0)
[2023-10-13 21:29] LABS: BACTERIA 1+; RBC 0-2 rbc/hpf (0-2)
== END 2023-10-13 22:17 | disposition home or self-care (01) ==
LOC: ED 20:32
PROVIDERS: Physician Assistant Medical
DX: N20.0 Calculus of kidney (principal); F41.9 Anxiety disorder, unspecified; F32.A Depression, unspecified; E78.5 Hyperlipidemia, unspecified; E11.9 Type 2 diabetes mellitus without complications; Z79.899 Other long term (current) drug therapy; Z90.49 Acquired absence of other specified parts of digestive tract; Z87.891 Personal history of nicotine dependence; Z87.442 Personal history of urinary calculi

== ENCOUNTER → 2023-12-15 | Outpatient (CLI) | payer OTHER ==
[2023-12-15 09:53] LABS: BASO % 0.4 % (0.0-1.0); EOS # 0.3 10*3/uL (0.0-0.4); EOS % 2.8 % (1.0-4.0); HEMATOCRIT 40.7 % (42.0-52.0); LYMPH # 3.5 10*3/uL (1.3-4.4); LYMPH % 37.5 % (27.0-41.0); MEAN CELL VOLUME 88.7 fl (80.0-94.0); MEAN CORPUSCULAR HGB CONC 30.5 g/dl (33.0-37.0); MEAN PLATELET VOLUME 10.3 fl (9.6-12.3); MONO # 0.5 10*3/uL (0.1-1.0); MONO % 5.8 % (3.0-9.0); NEUT # 4.9 10*3/uL (2.3-7.9); NEUT % 53.1 % (47.0-73.0); PLATELET COUNT AUTOMATED 238 10*3/uL (130-400); RED BLOOD COUNT 4.59 10*6/uL (4.50-5.90); RED CELL DISTRI WIDTH 15.3 % (0-14.5); WHITE BLOOD COUNT 9.2 10*3/uL (4.8-10.8)
[2023-12-21 12:08] LABS: TESTOSTERONE FREE, (DIRECT) 0.6 pg/mL (6.8-21.5)
== END | disposition home or self-care (01) ==
LOC: LAB 09:32
PROVIDERS: ATTEND Clinical Nurse Specialist
DX: Z12.5 Encounter for screening for malignant neoplasm of prostate (principal); E29.1 Testicular hypofunction

== ENCOUNTER 2024-04-15 22:20 | Emergency (ER) | payer OTHER ==
[~2024-04-15] VITALS: Ht 170.1 cm; Wt 122.5 kg
[2024-04-15] MEDS ORDERED: Ketorolac Tromethamine 15 MG/ML VIAL IM ONE (22:35)
[2024-04-16] MEDS ORDERED: MELOXICAM15 MG PO (00:19)
== END 2024-04-16 00:21 | disposition home or self-care (01) ==
LOC: ED 22:20
DX: S63.591A Other specified sprain of right wrist, initial encounter (principal); F17.200 Nicotine dependence, unspecified, uncomplicated; Z79.899 Other long term (current) drug therapy; Z90.49 Acquired absence of other specified parts of digestive tract; X58.XXXA Exposure to other specified factors, initial encounter; Y93.89 Activity, other specified; Y92.89 Other specified places as the place of occurrence of the external cause; Y99.8 Other external cause status

== ENCOUNTER → 2024-04-18 | Outpatient (CLI) | payer OTHER ==
[~2024-04-18] MED LIST changes: +MELOXICAM15 MG PO
[2024-04-18 10:23] LABS: BASO # 0.1 10*3/uL (0.0-0.1); BASO % 0.5 % (0.0-1.0); EOS # 0.7 10*3/uL (0.0-0.4); EOS % 7.4 % (1.0-4.0); MEAN CELL VOLUME 84.6 fl (80.0-94.0); MEAN CORPUSCULAR HGB 25.2 pg (27.0-31.0); MEAN CORPUSCULAR HGB CONC 29.8 g/dl (33.0-37.0); MEAN PLATELET VOLUME 10.5 fl (9.6-12.3); MONO # 0.6 10*3/uL (0.1-1.0); NEUT % 52.2 % (47.0-73.0); PLATELET COUNT AUTOMATED 292 10*3/uL (130-400); RED BLOOD COUNT 5.44 10*6/uL (4.50-5.90); RED CELL DISTRI WIDTH 16.2 % (0-14.5); WHITE BLOOD COUNT 9.6 10*3/uL (4.8-10.8)
[2024-04-18 11:06] LABS: VITAMIN D, 25-HYDROXY 28.2 ng/mL (30-100)
== END | disposition home or self-care (01) ==
LOC: LAB 10:02
PROVIDERS: ATTEND Physician Assistant
DX: Z51.81 Encounter for therapeutic drug level monitoring (principal)

== ENCOUNTER → 2024-06-16 | Outpatient (CLI) | payer OTHER ==
[2024-06-16 08:42] LABS: BASO # 0.1 10*3/uL (0.0-0.1); BASO % 0.8 % (0.0-1.0); EOS # 0.5 10*3/uL (0.0-0.4); EOS % 5.9 % (1.0-4.0); HEMATOCRIT 44.6 % (42.0-52.0); MEAN CORPUSCULAR HGB 25.4 pg (27.0-31.0); MEAN CORPUSCULAR HGB CONC 30.3 g/dl (33.0-37.0); MEAN PLATELET VOLUME 10.4 fl (9.6-12.3); MONO # 0.7 10*3/uL (0.1-1.0); MONO % 7.4 % (3.0-9.0); NEUT # 4.5 10*3/uL (2.3-7.9); NEUT % 51.5 % (47.0-73.0); PLATELET COUNT AUTOMATED 280 10*3/uL (130-400); RED BLOOD COUNT 5.31 10*6/uL (4.50-5.90); WHITE BLOOD COUNT 8.8 10*3/uL (4.8-10.8)
== END | disposition home or self-care (01) ==
LOC: LAB 08:22
PROVIDERS: ATTEND Clinical Nurse Specialist
DX: E29.1 Testicular hypofunction (principal)

== ENCOUNTER 2024-08-24 12:36 | Emergency (ER) | payer OTHER ==
[~2024-08-24] VITALS: Ht 170.1 cm; Wt 122.5 kg
[2024-08-24] MEDS ORDERED: NAPROSYN500 MG PO (13:54)
[2024-08-24] MEDS ORDERED: Ketorolac Tromethamine 60 MG/2 ML VIAL IM ONE (13:55)
== END 2024-08-24 13:59 | disposition home or self-care (01) ==
LOC: ED 12:36
DX: S66.912A Strain of unspecified muscle, fascia and tendon at wrist and hand level, left hand, initial encounter (principal); F20.9 Schizophrenia, unspecified; F41.9 Anxiety disorder, unspecified; F17.200 Nicotine dependence, unspecified, uncomplicated; E78.5 Hyperlipidemia, unspecified; F32.A Depression, unspecified; E11.9 Type 2 diabetes mellitus without complications; E66.9 Obesity, unspecified; Z68.39 Body mass index [BMI] 39.0-39.9, adult; Z79.899 Other long term (current) drug therapy; Z90.49 Acquired absence of other specified parts of digestive tract; X58.XXXA Exposure to other specified factors, initial encounter; Y93.89 Activity, other specified; Y92.89 Other specified places as the place of occurrence of the external cause; Y99.8 Other external cause status

== ENCOUNTER 2024-09-05 00:44 | Emergency (ER) | payer OTHER ==
[~2024-09-05] VITALS: Ht 170.1 cm; Wt 127.0 kg
[~2024-09-05 00:44] MED LIST changes: +NAPROSYN500 MG PO
[2024-09-05] MEDS ORDERED: methylPREDNISolone sod succ 125 MG VIAL IM ONE (02:30)
== END 2024-09-05 02:20 | disposition home or self-care (01) ==
LOC: ED 00:44
DX: G83.23 Monoplegia of upper limb affecting right nondominant side (principal); F20.9 Schizophrenia, unspecified; Z79.899 Other long term (current) drug therapy; Z90.49 Acquired absence of other specified parts of digestive tract

== ENCOUNTER 2024-09-28 12:49 | Emergency (ER) | payer OTHER ==
[~2024-09-28] VITALS: Ht 170.1 cm; Wt 117.9 kg
== END 2024-09-28 13:59 | disposition home or self-care (01) ==
LOC: ED 12:49
DX: R03.0 Elevated blood-pressure reading, without diagnosis of hypertension (principal); E66.01 Morbid (severe) obesity due to excess calories; Z79.899 Other long term (current) drug therapy; Z90.49 Acquired absence of other specified parts of digestive tract; Z87.891 Personal history of nicotine dependence; Z68.30 Body mass index [BMI] 30.0-30.9, adult

== ENCOUNTER → 2024-10-03 | Outpatient (CLI) | payer OTHER ==
[2024-10-03 10:23] LABS: BASO # 0.0 10*3/uL (0.0-0.1); BASO % 0.6 % (0.0-1.0); EOS # 0.5 10*3/uL (0.0-0.4); EOS % 7.6 % (1.0-4.0); MEAN CELL VOLUME 86.4 fl (80.0-94.0); MEAN CORPUSCULAR HGB 26.7 pg (27.0-31.0); MEAN PLATELET VOLUME 10.6 fl (9.6-12.3); MONO # 0.5 10*3/uL (0.1-1.0); MONO % 7.0 % (3.0-9.0); NEUT # 3.4 10*3/uL (2.3-7.9); NEUT % 50.4 % (47.0-73.0); NUCLEATED RED BLOOD CELL 0.0 % (0.0-0.0); NUCLEATED RED BLOOD CELL 0.0 10*3/uL (0.0-0.0); PLATELET COUNT AUTOMATED 257 10*3/uL (130-400); RED CELL DISTRI WIDTH 14.7 % (0-14.5)
[2024-10-03 10:50] LABS: BUN 8 mg/dl (9-23); CPK 58 U/L (34-171); FREE T4 1.14 ng/dl (0.89-1.76); LDL CHOLESTEROL 99 mg/dL (9-159); SGPT/ALT 23 U/L (5-49)
== END | disposition home or self-care (01) ==
LOC: LAB 09:38
PROVIDERS: ATTEND Internal Medicine
DX: E11.9 Type 2 diabetes mellitus without complications (principal); M79.10 Myalgia, unspecified site; M25.50 Pain in unspecified joint